=== PATIENT | female | born 1985 | race American Indian/Alaskan Native ===

== ENCOUNTER 2017-01-29 19:00 | Emergency (ER) | payer SELFPAY ==
[2017-01-29 19:32] VITALS: BP 143/91
[2017-01-29 19:55] LABS: Basophils % (Auto) 0.2 % (0.0-1.8); Eosinophils % (Auto) 2.6 % (0.0-4.3); Mean Corpuscular HGB Conc 33 % (30-34); Mean Corpuscular Hemoglobin 29 pg (28-32); Mean Corpuscular Volume 87 fl (79-97); Platelet Count 285 K/mm3 (140-440); Red Blood Count 4.51 M/mm3 (3.65-5.03)
[2017-01-29 20:14] LABS: Alanine Aminotransferase 14 units/L (7-56); Alkaline Phosphatase 95 units/L (35-129); Anion Gap 18 mmol/L; BUN/Creatinine Ratio 15.71; Bilirubin,Total < 0.2 mg/dL (0.1-1.2); Blood Urea Nitrogen 11 mg/dL (7-17); Calcium 9.4 mg/dL (8.4-10.2); Carbon Dioxide 27 mmol/L (22-30); Chloride 98.5 mmol/L (98-107); Glucose 98 mg/dL (65-100); Lipase 28 units/L (13-60); Sodium 139 mmol/L (137-145); Total Protein 7.9 g/dL (6.3-8.2)
[2017-01-29 21:04] LABS: Bilirubin,Urine NEG (Negative); Blood,Urine MOD (Negative); Ketones,Urine TR mg/dL (Negative); Leukocyte Esterase,Urine TR (Negative); Mucus,Urine 3+ /HPF; Nitrite,Urine NEG (Negative); Protein,Urine <15 mg/dL mg/dL (Negative); WBC,Urine < 1.0 /HPF (0.0-6.0)
--- NOTE | 2017-01-30 19:08 | ED Elopement Review ---
ED Pt Elopement review - Results review Lab results: Laboratory Tests 01/29/17 01/29/17 01/29/17 19:39 19:39 Unknown WBC 7.0 RBC 4.51 Hgb 13.0 Hct 39.0 MCV 87 MCH 29 MCHC 33 RDW 14.0 Plt Count 285 Lymph % (Auto) 45.9 H Stewart % (Auto) 8.3 H Eos % (Auto) 2.6 Baso % (Auto) 0.2 Lymph # 3.2 Stewart # 0.6 Eos # 0.2 Baso # 0.0 Seg Neutrophils % 43.0 Seg Neutrophils # 3.0 Sodium 139 Potassium 4.0 Chloride 98.5 Carbon Dioxide 27 Anion Gap 18 BUN 11 Creatinine 0.7 Estimated GFR > 60 BUN/Creatinine Ratio 15.71 Glucose 98 Calcium 9.4 Total Bilirubin < 0.2 AST 22 ALT 14 Alkaline Phosphatase 95 Total Protein 7.9 Albumin 4.0 Albumin/Globulin Ratio 1.0 Lipase 28 Urine Color Yellow Urine Turbidity Clear Urine pH 5.0 Urine Protein <15 mg/dl Urine Glucose (UA) Neg Urine Ketones Tr Urine Blood Mod Urine Nitrite Neg Urine Bilirubin Neg Urine Urobilinogen 2.0 Ur Leukocyte Esterase Tr Urine WBC (Auto) < 1.0 Urine RBC (Auto) 1.0 U Epithel Cells (Auto) 13.0 Urine Mucus 3+ Urine HCG, Qual Negative - Call Back decision Pt Call Back Decision: No action required
== END 2017-01-29 19:40 | disposition left against medical advice (07) ==
LOC: ED 19:00
DX: R11.10 Vomiting, unspecified (principal); R10.9 Unspecified abdominal pain; M54.9 Dorsalgia, unspecified; Z53.21 Procedure and treatment not carried out due to patient leaving prior to being seen by health care provider
CPT/HCPCS: 36415; 80053; 81001; 81025; 83690; 85025